=== PATIENT | male | born 1980 | race Caucasian/White ===

== ENCOUNTER 2017-11-30 08:23 | Observation (INO) | payer OTHER ==
[2017-11-30] VITALS (15 sets, daily range): BP systolic 90–118; BP diastolic 53–75; PULSE 67–111; RESP 16–20; TEMP 97.1–98.8; O2SAT 98–100
[~2017-11-30] VITALS: Ht 177.8 cm; Wt 82.6 kg
[~2017-11-30 08:23] MED LIST: FLUT1SPR9 EACH NARE; MULTTAB67 PO; OXYC1TAB35 PO; VITA500030 CHEW; XANA1TAB2 PO; ZYRT10CA PO
[2017-11-30] MEDS ORDERED: SODIUM CHLORIDE 0.9% FLUSH 10 ML FLUSH IVF PRN (08:45)
[2017-11-30 08:51] LABS: AUTOMATED NEUTROPHIL # 1.6 TH/MM3 (1.8-7.7); BASOPHIL % 0.5 % (0.0-2.0); EOSINOPHIL # 0.2 TH/MM3 (0-0.4); EOSINOPHIL % 7.6 % (0.0-4.0); LYMPH % 20.6 % (9.0-44.0); LYMPHOCYTE # 0.6 TH/MM3 (1.0-4.8); MEAN CELL VOLUME 62.6 FL (80.0-100.0); MEAN CORPUSCULAR HEMOGLOBIN 19.7 PG (27.0-34.0); MEAN CORPUSCULAR HGB CONC 31.5 % (32.0-36.0); MEAN PLATELET VOLUME 7.1 FL (7.0-11.0); MONO % 10.1 % (0.0-8.0); MONOCYTE # 0.3 TH/MM3 (0-0.9); NEUT % 61.2 % (16.0-70.0); PLATELET COUNT 198 TH/MM3 (150-450); RED BLOOD COUNT 3.35 MIL/MM3 (4.50-5.90); WHITE BLOOD COUNT 2.7 TH/MM3 (4.0-11.0)
--- NOTE | 2017-11-30 08:51 | PD ---
HPI Chief Complaint: Abnormal Results Time Seen by Provider: 08:33 Travel History International Travel<30 days: No Contact w/Intl Traveler<30days: No Traveled to known affect area: No History of Present Illness HPI Patient was recommended to come to the emergency department for routine labs that were abnormal in particular was his hemoglobin. Patient stated that he just had routine labs, that he was not having any particular complaints. Patient denies any active complaints at the present time. Patient denies any alleviating or aggravating factors. However the patient has noted that he is activity tolerance has decreased, stating that he seems to be, more tired or dizzy with activity. Hemoglobin perform as an outpatient was 6.4 Primary care doctor is GERALD from [facility] GI Dr. sunita HOPKINS Past medical history significant for Crohn's disease, ileostomy and colostomy, reversal of the ileostomy and colostomy PFSH Past Medical History Cancer: No Cardiovascular Problems: No Diminished Hearing: No Endocrine: No Genitourinary: No Implanted Vascular Access Dvce: No Musculoskeletal: No Neurologic: No Psychiatric: No Reproductive: No Respiratory: No Tetanus Vaccination: < 5 Years Past Surgical History AICD: No Arteriovenous Shunt: No Insulin Pump: No Joint Replacement: No Pacemaker: No Other Surgery: Yes (reverse illosteomy and colostomy ) Social History Alcohol Use: Yes (OCC) Tobacco Use: No Substance Use: Yes (marijauna regularly) Allergies-Medications (Allergen,Severity, Reaction): Coded Allergies: No Known Allergies (Verified Adverse Reaction, Unknown, 11/30/17) Reported Meds & Prescriptions Reported Meds & Active Scripts Active Reported [Motility Boost] [Fertilaid] Anti-Diarrheal (Loperamide HCl) 2 Mg Tab 2 Mg PO DIRECTED PRN Take 4 mg after 1st loose stool, then take 2 mg after each subsequent stool. Max 8 mg/day. [Xyzol] Probiotic (Saccharomyces Boulardii) 250 Mg Cap 250 Mg PO BID Vitamin D3 (Cholecalciferol) 5,000 Unit Cap 5,000 Units PO DAILY Alprazolam 1 Mg Tab 1 Mg PO BID PRN Dicyclomine (Dicyclomine HCl) 20 Mg Tab 20 Mg PO BID Remicade Inj (Infliximab) 100 Mg Inj Unknown Dose DIRECTED Multiple Vitamin 1 Tab 1 Tab PO DAILY Flonase Allergy Relief Children Nasal [place] (Fluticasone Nasal [place]) 50 Mcg/ Act [place] 1 [place] EACH NARE DAILY 50 mcg/spray Oxycodone-Acetaminophen 7.5-325 mg Tab 1 Tab PO Q4H PRN Review of Systems General / Constitutional: No: Fever Eyes: No: Visual changes HENT: No: Headaches Cardiovascular: No: Chest Pain or Discomfort Respiratory: No: Shortness of Breath Gastrointestinal: No: Abdominal Pain Genitourinary: No: Dysuria Musculoskeletal: No: Pain Skin: No Rash Neurologic: Positive: Weakness (On exertion) Psychiatric: No: Depression Endocrine: No: Polydipsia Hematologic/Lymphatic: No: Easy Bruising Physical Exam Narrative GENERAL: SKIN: Warm and dry. Pallor is noted throughout including conjunctival and mucosal. HEAD: Atraumatic. Normocephalic. EYES: Pupils equal and round. No scleral icterus. No injection or drainage. ENT: No nasal bleeding or discharge. Mucous membranes pink and moist. NECK: Trachea midline. No JVD. CARDIOVASCULAR: Regular rate and rhythm. RESPIRATORY: No accessory muscle use. Clear to auscultation. Breath sounds equal bilaterally. GASTROINTESTINAL: Abdomen soft, non-tender, nondistended. MUSCULOSKELETAL: Extremities without clubbing, cyanosis, or edema. No obvious deformities. NEUROLOGICAL: Awake and alert. No obvious cranial nerve deficits. Motor grossly within normal limits. Five out of 5 muscle strength in the arms and legs. Normal speech. PSYCHIATRIC: Appropriate mood and affect; insight and judgment normal. Data Data Last Documented VS Vital Signs Date Time Temp Pulse Resp B/P (MAP) Pulse Ox O2 Delivery O2 Flow Rate FiO2 11/30/17 09:11 98 16 103/54 (70) 98 Room Air 11/30/17 08:27 98.8 Orders Orders Electrocardiogram (11/30/17 08:33) Complete Blood Count With Diff (11/30/17 08:33) Comprehensive Metabolic Panel (11/30/17 08:33) B-Type Natriuretic Peptide (11/30/17 08:33) Ckmb (Isoenzyme) Profile (11/30/17 08:33) Troponin I (11/30/17 08:33) Act Partial Throm Time (Ptt) (11/30/17 08:33) Prothrombin Time / Inr (Pt) (11/30/17 08:33) Chest, Single Ap (11/30/17 08:33) Ecg Monitoring (11/30/17 08:33) Iv Access Insert/Monitor (11/30/17 08:33) Oximetry (11/30/17 08:33) Sodium Chloride 0.9% Flush (Ns Flush) (11/30/17 08:45) Type And Screen (11/30/17 08:33) CKMB (11/30/17 08:45) CKMB% (11/30/17 08:45) Admit Order (Ed Use Only) (11/30/17 09:14) Labs Laboratory Tests Test 11/30/17 08:45 White Blood Count 2.7 TH/MM3 Red Blood Count 3.35 MIL/MM3 Hemoglobin 6.6 GM/DL Hematocrit 21.0 % Mean Corpuscular Volume 62.6 FL Mean Corpuscular Hemoglobin 19.7 PG Mean Corpuscular Hemoglobin Concent 31.5 % Red Cell Distribution Width 18.0 % Platelet Count 198 TH/MM3 Mean Platelet Volume 7.1 FL Neutrophils (%) (Auto) 61.2 % Lymphocytes (%) (Auto) 20.6 % Monocytes (%) (Auto) 10.1 % Eosinophils (%) (Auto) 7.6 % Basophils (%) (Auto) 0.5 % Neutrophils # (Auto) 1.6 TH/MM3 Lymphocytes # (Auto) 0.6 TH/MM3 Monocytes # (Auto) 0.3 TH/MM3 Eosinophils # (Auto) 0.2 TH/MM3 Basophils # (Auto) 0.0 TH/MM3 CBC Comment AUTO DIFF Differential Comment AUTO DIFF CONFIRMED Ovalocytes 2+ Keratocytes OCC Prothrombin Time 10.4 SEC Prothromb Time International Ratio 1.0 RATIO Activated Partial Thromboplast Time 24.6 SEC Blood Urea Nitrogen 15 MG/DL Creatinine 0.85 MG/DL Random Glucose 96 MG/DL Total Protein 6.9 GM/DL Albumin 3.5 GM/DL Calcium Level 8.4 MG/DL Alkaline Phosphatase 70 U/L Aspartate Amino Transf (AST/SGOT) 31 U/L Alanine Aminotransferase (ALT/SGPT) 39 U/L Total Bilirubin 0.4 MG/DL Sodium Level 140 MEQ/L Potassium Level 4.0 MEQ/L Chloride Level 105 MEQ/L Carbon Dioxide Level 25.6 MEQ/L Anion Gap 9 MEQ/L Estimat Glomerular Filtration Rate 102 ML/MIN Total Creatine Kinase 265 U/L Creatine Kinase MB 1.6 NG/ML Troponin I LESS THAN 0.02 NG/ML B-Type Natriuretic Peptide 33 PG/ML MDM Medical Decision Making Medical Screen Exam Complete: Yes Emergency Medical Condition: Yes Medical Record Reviewed: Yes Interpretation(s) EKG shows normal sinus rhythm, 92 bpm, normal intervals, slight motion artifact no evidence of any ST elevation CO pattern. Differential Diagnosis Dehydration versus anemia versus STEMI versus non-STEMI Narrative Course CBC shows a WBC of 2.7, hemoglobin is 6.6, hematocrit of 21, platelet count 198, 000 without any left shift Coagulation profile is within normal limits Electrolytes are all within normal limits, Diagnosis Primary Impression: Symptomatic anemia Admitting Information Admitting Physician Requests: Observation Fermin Cash MD November 30, 2017 08:51
[2017-11-30 08:54] LABS: HEMOGLOBIN 6.6 GM/DL (13.0-17.0)
[2017-11-30] MEDS ORDERED: CHOL5000 PO (08:55)
[2017-11-30] MEDS ORDERED: SACC1CAP3 PO (08:55)
[2017-11-30] MEDS ORDERED: [UNRECOGNIZED DRUG - OTHER] (08:55)
[2017-11-30] MEDS ORDERED: DICY20TA10 PO (08:55)
[2017-11-30] MEDS ORDERED: XYZOL (08:55)
[2017-11-30] MEDS ORDERED: ANTI2TAB10 PO (08:55)
[2017-11-30] MEDS ORDERED: ALPR1TAB3 PO (08:55)
[2017-11-30] MEDS ORDERED: INFL100P (08:55)
[2017-11-30] MEDS ORDERED: [UNRECOGNIZED DRUG - OTHER] (08:55)
[2017-11-30 08:59] LABS: CHLORIDE 105 MEQ/L (98-107); SODIUM (NA) 140 MEQ/L (136-145)
[2017-11-30 09:02] LABS: CALCIUM 8.4 MG/DL (8.5-10.1)
[2017-11-30 09:03] LABS: ALBUMIN 3.5 GM/DL (3.4-5.0); BICARBONATE 25.6 MEQ/L (21.0-32.0); BLOOD UREA NITROGEN 15 MG/DL (7-18); GLUCOSE,RANDOM 96 MG/DL (74-106); PROTHROMBIN TIME - PATIENT 10.4 SEC (9.8-11.6)
[2017-11-30 09:06] LABS: ALT (GPT) 39 U/L (12-78); AST (GOT) 31 U/L (15-37); CREATININE 0.85 MG/DL (0.60-1.30); GLOMERULAR FILTRATION RATE 102 ML/MIN (>89)
[2017-11-30 09:07] LABS: TOTAL BILIRUBIN ADULT 0.4 MG/DL (0.2-1.0); TOTAL PROTEIN 6.9 GM/DL (6.4-8.2)
[2017-11-30 09:08] LABS: ALKALINE PHOSPHATASE 70 U/L (45-117)
[2017-11-30 09:10] LABS: TROPONIN I LESS THAN 0.02 NG/ML (0.02-0.05)
[2017-11-30] MEDS ORDERED: NALOXONE HCL 0.4 MG/ML AMP IV PUSH PRN (09:15)
[2017-11-30] MEDS ORDERED: MAGNESIUM HYDROXIDE SUSP 30 ML CUP PO PRN (09:15)
[2017-11-30] MEDS ORDERED: diphenhydrAMINE HCL 25 MG CAP PO PRN (09:15)
[2017-11-30] MEDS ORDERED: SODIUM CHLOR 0.9% 250 ML INJ 250 ML IV ONE (09:15)
[2017-11-30] MEDS ORDERED: ACETAMINOPHEN 325 MG TAB PO PRN ×2 (09:15)
[2017-11-30] MEDS ORDERED: SODIUM CHLORIDE 0.9% FLUSH 10 ML FLUSH IV FLUSH PRN (09:15)
[2017-11-30 09:29] LABS: KERATOCYTES OCC (NORMAL); OVALOCYTES 2+ (NORMAL)
--- NOTE | 2017-11-30 09:43 | RADRPT ---
EXAM DATE: 11/30/2017 9:24 AM EDT AGE/SEX: 37 years / Male INDICATIONS: Dizziness, weakness. CLINICAL DATA: This is the patient's initial encounter. Patient reports that signs and symptoms have been present for 3 days and indicates a pain score of 0/10. MEDICAL/SURGICAL HISTORY: Crohn's disease. Colon resection. COMPARISON: 05/24/2016.. FINDINGS: A single AP view of the chest demonstrates the lungs to be symmetrically aerated without evidence of mass, infiltrate or effusion. The cardiomediastinal contours are unremarkable. Osseous structures a re intact. There are overlying echocardiogram leads. CONCLUSION: No acute cardiopulmonary disease. Electronically signed by: Gilberto Mendosa MD 11/30/2017 9:42 AM EDT
--- NOTE | 2017-11-30 11:05 | HHI.HP ---
[facility]Staff Admission Diagnosis SEVERE ANEMIA Diagnoses: (1) Anemia of chronic disease (2) Crohn's disease Chief Complaint: I have been feeling fatigue and tired Travel History International Travel<30 Days: No Contact w/Intl Traveler <30 Da: No Traveled to Known Affected Are: No History of Present Illness 37-year-old man with past medical history of Crohn disease presented to the ED today for evaluation of ongoing fatigue and tiredness over the past 6 months. Abnormal lab in the ED reveals H&H of 6.6/21.0. Patient currently denies any gross bleed and states, his last visit with his GI 6 months ago he was told this H&H was within normal limits. Patient denies any recollection of prior blood transfusion however he has been's receiving Venofer transfusion multiple times from his GI doctor. He denies any current shortness of breath, dizziness. He has no hemoptysis or hematuria.. He reports compliance with his medications. Review of Systems Except as stated in HPI: all other systems reviewed are Neg Past Family Social History Past Medical History Crohn disease Iron deficiency anemia Anemia chronic disease Past Surgical History ileostomy and colostomy, reversal of the ileostomy and colostomy Reported Medications Anti-Diarrheal (Loperamide HCl) 2 Mg Tab 2 Mg PO DIRECTED PRN Take 4 mg after 1st loose stool, then take 2 mg after each subsequent stool. Max 8 mg/day. [Xyzol] Probiotic (Saccharomyces Boulardii) 250 Mg Cap 250 Mg PO BID Vitamin D3 (Cholecalciferol) 5,000 Unit Cap 5,000 Units PO DAILY Alprazolam 1 Mg Tab 1 Mg PO BID PRN Dicyclomine (Dicyclomine HCl) 20 Mg Tab 20 Mg PO BID Remicade Inj (Infliximab) 100 Mg Inj Unknown Dose DIRECTED Multiple Vitamin 1 Tab 1 Tab PO DAILY Flonase Allergy Relief Children Nasal [place] (Fluticasone Nasal [place]) 50 Mcg/ Act [place] 1 [place] EACH NARE DAILY 50 mcg/spray Oxycodone-Acetaminophen 7.5-325 mg Tab 1 Tab PO Q4H PRN Allergies: Coded Allergies: No Known Allergies (Verified Adverse Reaction, Unknown, 11/30/17) Family History Father with history of CVA, Parkinson disease, diabetes, Mother from complication of CHF. Social History Patient works 2 jobs and denies tobacco, alcohol however admitted to medicinal marijuana use. Physical Exam Vital Signs Vital Signs Date Time Temp Pulse Resp B/P (MAP) Pulse Ox O2 Delivery O2 Flow Rate FiO2 11/30/17 09:45 11/30/17 09:11 98 16 103/54 (70) 98 Room Air 11/30/17 08:39 16 99 Room Air 11/30/17 08:36 16 100 Room Air 11/30/17 08:27 98.8 111 18 117/69 (85) 100 Physical Exam GENERAL: This is a well-nourished, well-developed patient, in no apparent distress. SKIN: No rashes, ecchymoses or lesions. Cool and dry. HEAD: Atraumatic. Normocephalic. No temporal or scalp tenderness. EYES: Pupils equal round and reactive. Extraocular motions intact. No scleral icterus. No injection or drainage. ENT: Nose without bleeding, purulent drainage or septal hematoma. Throat without erythema, tonsillar hypertrophy or exudate. Uvula midline. Airway patent. NECK: Trachea midline. No JVD or lymphadenopathy. Supple, nontender, no meningeal signs. CARDIOVASCULAR: Regular rate and rhythm without murmurs, gallops, or rubs. RESPIRATORY: Clear to auscultation. Breath sounds equal bilaterally. No wheezes , rales, or rhonchi. GASTROINTESTINAL: Abdomen soft, non-tender, nondistended. No hepato-splenomegaly , or palpable masses. No guarding. MUSCULOSKELETAL: Extremities without clubbing, cyanosis, or edema. No joint tenderness, effusion, or edema noted. No calf tenderness. Negative Homans sign bilaterally. NEUROLOGICAL: Awake and alert. Cranial nerves II through XII intact. Motor and sensory grossly within normal limits. Five out of 5 muscle strength in all muscle groups. Normal speech. Laboratory Laboratory Tests Test 11/30/17 08:45 White Blood Count 2.7 Red Blood Count 3.35 Hemoglobin 6.6 Hematocrit 21.0 Mean Corpuscular Volume 62.6 Mean Corpuscular Hemoglobin 19.7 Mean Corpuscular Hemoglobin Concent 31.5 Red Cell Distribution Width 18.0 Platelet Count 198 Mean Platelet Volume 7.1 Neutrophils (%) (Auto) 61.2 Lymphocytes (%) (Auto) 20.6 Monocytes (%) (Auto) 10.1 Eosinophils (%) (Auto) 7.6 Basophils (%) (Auto) 0.5 Neutrophils # (Auto) 1.6 Lymphocytes # (Auto) 0.6 Monocytes # (Auto) 0.3 Eosinophils # (Auto) 0.2 Basophils # (Auto) 0.0 CBC Comment AUTO DIFF Differential Comment AUTO DIFF CONFIRMED Ovalocytes 2+ Keratocytes OCC Prothrombin Time 10.4 Prothromb Time International Ratio 1.0 Activated Partial Thromboplast Time 24.6 Blood Urea Nitrogen 15 Creatinine 0.85 Random Glucose 96 Total Protein 6.9 Albumin 3.5 Calcium Level 8.4 Alkaline Phosphatase 70 Aspartate Amino Transf (AST/SGOT) 31 Alanine Aminotransferase (ALT/SGPT) 39 Total Bilirubin 0.4 Sodium Level 140 Potassium Level 4.0 Chloride Level 105 Carbon Dioxide Level 25.6 Anion Gap 9 Estimat Glomerular Filtration Rate 102 Total Creatine Kinase 265 Creatine Kinase MB 1.6 Troponin I LESS THAN 0.02 B-Type Natriuretic Peptide 33 Result Diagram: 11/30/17 0845 11/30/17 0845 Imaging Last Impressions Chest X-Ray 11/30/17 0833 Signed Impressions: CONCLUSION: No acute cardiopulmonary disease. Septic Shock Reassessment Septic shock perfusion: reassessment completed Caprini VTE Risk Assessment Caprini VTE Risk Assessment: No/Low Risk (score <= 1) Caprini Risk Assessment Model Point Value = 1 Point Value = 2 Point Value = 3 Point Value = 5 Age 41-60 Minor surgery BMI > 25 kg/m2 Swollen legs Varicose veins or History of unexplained or recurrent spontaneous Oral contraceptives or hormone replacement Sepsis (< 1 month) Serious lung disease, including pneumonia (< 1 month) Abnormal pulmonary function Acute myocardial infarction Congestive heart failure (< 1 month) History of inflammatory bowel disease Medical patient at bed rest Age 61-74 Arthroscopic surgery Major open surgery (> 45 min) Laparoscopic surgery (> 45 min) Malignancy Confined to bed (> 72 hours) Immobilizing plaster cast Central venous access Age >= 75 History of VTE Family history of VTE Factor V Leiden Prothrombin [id number] Lupus anticoagulant Anticardiolipin antibodies Elevated serum homocysteine Heparin-induced thrombocytopenia Other congenital or acquired thrombophilia Stroke (< 1 month) Elective arthroplasty Hip, pelvis, or leg fracture Acute spinal cord injury (< 1 month) Prophylaxis Regimen Total Risk Factor Score Risk Level Prophylaxis Regimen 0-1 Low Early ambulation 2 Moderate Order ONE of the following: *Sequential Compression Device (SCD) *Heparin 5000 units SQ BID 3-4 Higher Order ONE of the following medications: *Heparin 5000 units SQ TID *Enoxaparin/Lovenox 40 mg SQ daily (WT < 150 kg, CrCl > 30 mL/min) *Enoxaparin/Lovenox 30 mg SQ daily (WT < 150 kg, CrCl > 10-29 mL/min) *Enoxaparin/Lovenox 30 mg SQ BID (WT < 150 kg, CrCl > 30 mL/min) AND/OR *Sequential Compression Device (SCD) 5 or more Highest Order ONE of the following medications: *Heparin 5000 units SQ TID (Preferred with Epidurals) *Enoxaparin/Lovenox 40 mg SQ daily (WT < 150 kg, CrCl > 30 mL/min) *Enoxaparin/Lovenox 30 mg SQ daily (WT < 150 kg, CrCl > 10-29 mL/min) *Enoxaparin/Lovenox 30 mg SQ BID (WT < 150 kg, CrCl > 30 mL/min) AND *Sequential Compression Device (SCD) Assessment and Plan Problem List: (1) Anemia of chronic disease ICD Code: D63.8 - Anemia in other chronic diseases classified elsewhere (2) Crohn's disease ICD Code: K50.90 - Crohn's disease, unspecified, without complications Status: Acute Assessment and Plan 37-year-old man with Anemia of chronic disease in a patient for history of Crohn disease Will transfuse 2 units packed red blood cell repeat H&H 2 hour post transfusion today prior to discharge Patient to follow outpatient with GI, History of iron deficiency anemia Patient to follow outpatient for Venofer transfusion History of Crohn disease Resume outpatient medications DVT prophylaxis: Chemical anti-prophylaxis is contraindicated Patient likely will be discharged home after blood transfusion today. Disposition Discharge patient to home Condition on discharge: Improved Regular Diet as tolerated Ad Alba activity Rx written: None Follow-up with primary care physician in 1 week Code Status Full code Discussed Condition With Patient, ED physician Romeo Menjivar MD November 30, 2017 11:05
[2017-11-30] MEDS ORDERED: ALPRAZolam 1 MG TAB PO PRN (12:00)
--- NOTE | 2017-11-30 14:44 | EKG ---
Date Performed: 11/30/2017 Time Performed: 08:42:45 PTAGE: 37 years EKG: Sinus rhythm NORMAL ECG INTERPRETATION BASED ON A DEFAULT AGE OF 40 YEARS NO PREVIOUS TRACING DOCTOR: Torey Velazquez Interpretating Date/Time 11/30/2017 14:42:55
[2017-11-30 20:35] LABS: HEMATOCRIT 27.6 % (39.0-51.0); HEMOGLOBIN 8.7 GM/DL (13.0-17.0)
[2017-11-30] MEDS ORDERED: NON-FORMULARY DRUG (Saccharomyces Boulardii (Probiotic) 250 MG) PO SCH (21:00)
[2017-11-30] MEDS ORDERED: SODIUM CHLORIDE 0.9% FLUSH 10 ML FLUSH IV FLUSH SCH (21:00)
[2017-11-30] MEDS ORDERED: DICYCLOMINE HCL 20 MG TAB PO SCH (21:00)
[2017-12-01] MEDS ORDERED: FLUTICASONE PROPIONATE 50 MCG/ACT 16 GM NASAL SPRAY EACH NARE SCH (09:00)
== END 2017-11-30 20:42 | disposition home or self-care (01) ==
LOC: PHED 08:23 → PHEDA 09:16 → PH3A 09:49
PROVIDERS: ADMIT Hospitalist; ATTEND Hospitalist
DX: D63.8 Anemia in other chronic diseases classified elsewhere (principal); R42 Dizziness and giddiness; K50.90 Crohn's disease, unspecified, without complications; F12.10 Cannabis abuse, uncomplicated; R53.83 Other fatigue; Z79.899 Other long term (current) drug therapy
CPT/HCPCS: 36430; 71045; 80053; 82550; 82552; 83880; 84484; 85014; 85018; 85025; 85610; 85730; 86850; 86900; 86901; 86920; 93005; 96360; 96361; 99285; G0378; J7050; P9016